=== PATIENT | female | born 1940 | race Caucasian/White ===

== ENCOUNTER → 2019-10-24 | Day surgery (SDC) | payer MEDICARE ==
[2019-10-22 12:20] LABS: BASOPHILS # (AUTO) 0.1 (0.0-0.1); BASOPHILS % 0.7 % (0.0-1.0); EOSINOPHILS % 0.5 % (0.0-6.0); HEMATOCRIT 43.5 % (34.2-44.1); LYMPHOCYTES # (AUTO) 2.2 (1.0-3.2); LYMPHOCYTES % 26.4 % (18.0-39.1); MEAN CORPUSCULAR HGB CONC 34.5 g/dL (31-35); MEAN CORPUSCULAR VOLUME 89.9 fL (81-99); MONOCYTES # (AUTO) 0.7 (0.2-0.8); NEUTROPHILS # (AUTO) 5.4 (2.1-6.9); NEUTROPHILS % 64.2 % (38.7-80.0); PLATELET COUNT 232 x10e3/uL (140-360); RED BLOOD COUNT 4.84 x10e6/uL (3.6-5.1); RED CELL DISTRIBUTION WIDTH 12.9 % (11.7-14.4)
--- NOTE | 2019-10-22 12:41 | Diagnostic Imaging Report ---
EXAM: CHEST 2 VIEWS DATE: 10/22/2019 11:40 AM INDICATION: Preoperative evaluation COMPARISON: None FINDINGS: Single lead left-sided pacing device identified in place. The trachea is midline. The lungs are symmetrically expanded without evidence for large focal consolidation, pneumothorax, or significant pleural effusion. The cardiomediastinal silhouette and pulmonary vasculature are within normal limits. Degenerative changes noted of the visualized spine. No acute osseous abnormality is identified. The surrounding soft tissues are unremarkable. IMPRESSION: No acute cardiopulmonary process identified. Signed by: Dr. Rubens Armando MD on 10/22/2019 12:38 PM
[~2019-10-24] MED LIST: AMLODIPINE BESYL5 MG PO; ARICEPT5 MG PO; ASPIR 8181 MG PO; CEFAZOLIN SOD 1 GM/NS 50ML 50 ML IV ONE; DEXAMETHASONE SOD PHOS INJ 4 MG/ML VIAL ONE; EYE LUBRICANT OPTH OINT 3.5GM TUBE OP ONE; FENTANYL CITRATE/PF 100MCG/2 ML INJ ONE; LEVOTHYROXINE50 MCG PO; LIDOCAINE 1% W/EPINEPHRINE 20 ML VIAL ONE; LIDOCAINE HCL 2% LOCAL INJ 5 ML SDV VIAL INJ ONE; METOPROLOL TART50 MG PO; MUPIROCIN 2% OINT 22 GM TUBE ONE; ONDANSETRON HCL INJ 2MG/ML 2ML 2 MG/ML VIAL ONE; POVIDONE IODINE 5% (OPTH) 30 ML BTL ONE; PROPOFOL IV EMULSION 10 MG/ML 20 ML VIAL ONE; QUETIAPINE FUMA25 MG PO; SEVOFLURANE INHAL SOLN 250 ML PEN BTL ONE; SIMVASTATIN20 MG PO
--- OUTSIDE RECORDS SUMMARY | 2019-10-24 05:43 | XMS REPORT ---
Author Author [facility] Organization [facility] Address Unknown Phone Unavailable Care Team Providers Care Weaving Machine Operator Name Role Phone DORA GASPAR Unavailable Unavailable Problems This patient has no known problems. Allergies, Adverse Reactions, Alerts This patient has no known allergies or adverse reactions. Medications This patient has no known medications. Results Test Description Test Time Test Comments Text Results Atomic Results Result Comments CHEST 2 VIEWS 2019-10-22 12:37:00 [place] [address] Patient Name: GINA CALDWELL MR #: [id number] : 1940 Age/Sex: 79/F Req #: [id number] Adm Physician: Ordered by: DORA GASPAR MD Report #: [id number] Location: OR Room/Bed: Procedure: [id number] DX/CHEST 2 VIEWS Exam Date: 10/22/19 Exam Time: 1140 REPORT STATUS: Signed EXAM: CHEST 2 VIEWS DATE: 10/22/2019 11:40 AM INDICATION: Preoperative evaluation COMPARISON: None FINDINGS: Single lead left-sided pacing device identified in place. The trachea is midline. The lungs are symmetrically expanded without evid ence for large focal consolidation, pneumothorax, or significant pleural effusion. The cardiomediastinal silhouette and pulmonary vasculature are within normal limits. Degenerative changes noted of the visualized spine. No acute osseous abnormality is identified. The surrounding soft tissues are unremarkable. IMPRESSION: No acute cardiopulmonary process identified. Signed by: Dr. Rubens Robledo MD on 10/22/2019 12:38 PM Dictated By: RUBENS ROBLEDO MD 1238 Transcribed By: SAMEER on 10/22/19 1238 COPY TO: DORA GASPAR MD
[2019-10-24 11:15] VITALS: BP 135/75
--- NOTE | 2019-10-24 12:45 | Operative Report ---
DATE OF PROCEDURE: 10/24/2019 SURGEON: Ritesh Brown MD PREOPERATIVE DIAGNOSIS: Malignant neoplasm, right cheek. POSTOPERATIVE DIAGNOSIS: Malignant neoplasm, right cheek, pending final pathology. PROCEDURES: 1. Excision of malignant neoplasm, right cheek, 3.5 cm diameter. 2. Pedicle flap closure, right cheek, 20 cm2. ANESTHESIA: General. HISTORY: The patient is an 79-year-old female, who has a large ulcerating lesion of the right cheek, which has been unattended to for several years. The proposed procedure is to excise the lesion in the OR and obtain frozen section diagnosis and control of the margins. Once the margins are clear, then definitive reconstruction will be performed. The risks, benefits, and alternatives of treatment were discussed with the patient and the , and they are prepared to undergo the procedure as outlined. PROCEDURE IN DETAIL: The patient was marked preoperatively in the holding area. She was brought to the operating theater and after the induction of adequate general anesthesia, she was prepped and draped in a supine position and a time-out was performed. The lesion measures approximately 2.3 to 2.4 cm in diameter the ulcerated area. In order to obtain free margins, a 1 cm margin was taken around the entire circumference of the lesion and this was then marked out. The incision was then made through the skin and subcutaneous tissue. Bleeding was controlled using the electrocautery. The lesion was incised full thickness through the subcutaneous tissues and then removed. It was then oriented and sent for frozen section control. 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 At this point, more tissue was taken on the superior edge of the wound approximately 2 to 3 mm in width. This area was then removed and sent to the pathology department as well. At this point, a pedicle of lobe flap closure was designed on the right cheek and the area was infiltrated with 1% Xylocaine with epinephrine. After waiting appropriate amount of time for maximum vasoconstrictive effect, the incision was made through the skin and subcutaneous tissues and the pedicle was noted to be approximately 3 cm wide by 3 cm long. The pedicle was then elevated in the deep subcutaneous plane and then the cheek was undermined, and the pedicle was then brought over to the primary defect. It was sutured in place using 5-0 nylon in an interrupted horizontal mattress fashion. The remaining defect was then undermined and closed and redundant skin edges were excised and remainder of the incision was then closed using 5-0 nylon in an interrupted horizontal mattress fashion as well. The entire flap measures approximately 5 x 3 cm for approximately 15 cm2 surface area. Bactroban ointment and Xeroform gauze were applied to the incisions. Sterile dressing was applied. The estimated blood loss for the procedure was approximately 10 to 20 mL. The patient tolerated the procedure well and was brought to recovery room in satisfactory condition and discharged with a postoperative instruction sheet as well as a followup appointment. MD NIKI Weber/JOHNIE /[id number]
== END | disposition home or self-care (01) ==
LOC: OR 05:35
PROVIDERS: ATTEND Plastic Surgery
DX: C44.319 Basal cell carcinoma of skin of other parts of face (principal); I10 Essential (primary) hypertension; E03.9 Hypothyroidism, unspecified; K21.9 Gastro-esophageal reflux disease without esophagitis; F03.90 Unspecified dementia, unspecified severity, without behavioral disturbance, psychotic disturbance, mood disturbance, and anxiety; F41.9 Anxiety disorder, unspecified; Z01.810 Encounter for preprocedural cardiovascular examination; Z01.812 Encounter for preprocedural laboratory examination; Z01.818 Encounter for other preprocedural examination; Z11.59 Encounter for screening for other viral diseases; Z79.82 Long term (current) use of aspirin; Z95.0 Presence of cardiac pacemaker
CPT/HCPCS: 14041; 36415; 71046; 85025; 87635; 88305; 88331; 88332; 93005; J0690; J1100; J2001; J2405; J2704; J3010

== ENCOUNTER 2019-11-07 11:56 | Emergency (ER) | payer MEDICARE, BC ==
[~2019-11-07] VITALS: Ht 165.1 cm; Wt 59.0 kg
[~2019-11-07 11:56] MED LIST changes: -CEFAZOLIN SOD 1 GM/NS 50ML 50 ML IV ONE; -DEXAMETHASONE SOD PHOS INJ 4 MG/ML VIAL ONE; -EYE LUBRICANT OPTH OINT 3.5GM TUBE OP ONE; -FENTANYL CITRATE/PF 100MCG/2 ML INJ ONE; -LIDOCAINE 1% W/EPINEPHRINE 20 ML VIAL ONE; -LIDOCAINE HCL 2% LOCAL INJ 5 ML SDV VIAL INJ ONE; -MUPIROCIN 2% OINT 22 GM TUBE ONE; -ONDANSETRON HCL INJ 2MG/ML 2ML 2 MG/ML VIAL ONE; -POVIDONE IODINE 5% (OPTH) 30 ML BTL ONE; -PROPOFOL IV EMULSION 10 MG/ML 20 ML VIAL ONE; -SEVOFLURANE INHAL SOLN 250 ML PEN BTL ONE
--- OUTSIDE RECORDS SUMMARY | 2019-11-07 12:00 | XMS REPORT | Summary of Care ---
Author Author [facility] Organization [facility] Address Unknown Phone Unavailable Encounter PARIS Chaney(PETRONA) [id number] Date(s): 05/11/16 - 05/11/16 [facility] [address] [place] [address]- Discharge Disposition: Home or Self Care Attending Physician: Justin Ann MD Referring Physician: Justin Ann MD Vital Signs Most recent to 1 2 oldest [Reference Range]: Height 178.37 cm (05/09/16 1:50 PM) Temperature Oral 97.3 DegF [96.4-99.1 DegF] (05/09/16 1:50 PM) Blood Pressure 162/71 mmHg 123/78 mmHg [90-140/60-90 mmHg] *HI* (05/09/16 1:50 PM) (05/11/16 12:05 PM) Respiratory Rate 18 BRMIN 16 BRMIN [14-20 BRMIN] (05/11/16 12:05 PM) (05/09/16 1:50 PM) Peripheral Pulse 48 bpm 55 bpm Rate [60-100 bpm] *LOW* *LOW* (05/11/16 12:05 PM) (05/09/16 1:50 PM) Weight 73.091 kg (05/09/16 1:50 PM) Body Mass Index 22.97 m2 (05/09/16 1:50 PM) Problem List Condition Effective Dates Status Health Status Informan t Pacemaker(Confirmed) Active GERD Active (gastroesophageal reflux disease)(Confirmed) Hyperlipidemia(Confi Active rmed) Hypertension(Confirm Active ed) Hypothyroidism(Confi Active rmed) Allergies, Adverse Reactions, Alerts Substance Reaction Severity Status codeine Active Dilantin Active Sumycin Active Medications aspirin 81 mg tablet, enteric coated 81 mg = 1 tab, PO, Daily, # 90 tab, 3 Refill(s) Start Date: 05/09/16 Status: Ordered levothyroxine 25 mcg (0.025 mg) oral tablet 25 microgram = 1 tab, PO, Daily, 0 Refill(s) Start Date: 05/09/16 Status: Ordered metoprolol tartrate 50 mg oral tablet 50 mg = 1 tab, PO, BID, 0 Refill(s) Start Date: 05/09/16 Status: Ordered pantoprazole 40 mg oral enteric coated tablet 40 mg = 1 tab, PO, Daily, 0 Refill(s) Start Date: 05/09/16 Status: Ordered pravastatin 40 mg oral tablet 40 mg = 1 tab, PO, Bedtime, 0 Refill(s) Start Date: 05/09/16 Status: Ordered Results ELECTROLYTES Most recent to 1 oldest [Reference Range]: Sodium Lvl [135-145 143 mEq/L mEq/L] (05/09/16 2:22 PM) Potassium Lvl 4.1 mEq/L [3.5-5.1 mEq/L] (05/09/16 2:22 PM) Chloride Lvl [95-109 106 mEq/L mEq/L] (05/09/16 2:22 PM) CO2 [24-32 mEq/L] 28 mEq/L (05/09/16 2:22 PM) AGAP [10.0-20.0 13.1 mEq/L mEq/L] (05/09/16 2:22 PM) CHEM PANEL Most recent to 1 oldest [Reference Range]: Creatinine Lvl 1.00 mg/dL [0.50-1.40 mg/dL] (05/09/16 2:22 PM) eGFR 54 mL/min/1.73m2 1 *NA* (05/09/16 2:22 PM) BUN [7-22 mg/dL] 18 mg/dL (05/09/16 2:22 PM) Glucose Lvl [70-99 76 mg/dL mg/dL] (05/09/16 2:22 PM) Calcium Lvl 8.9 mg/dL [8.5-10.5 mg/dL] (05/09/16 2:22 PM) 1Result Comment: The eGFR is calculated using the CKD-EPI formula. In most young, healthy individuals the eGFR will be >90 mL/min/1.73m2. The eGFR declines with age. An eGFR of 60-89 may be normal in some populations, particularly the elderly, for whom the CKD-EPI formula has not been extensively validated. Use of the eGFR is not recommended in the following populations: Individuals with unstable creatinine concentrations, including patients and those with serious co-morbid conditions. Patients with extremes in muscle mass or diet. The data above are obtained from the National Kidney Disease Education Program ( NKDEP) which additionally recommends that when the eGFR is used in patients with extremes of body mass index for purposes of drug dosing, the eGFR should be mul tiplied by the estimated BMI. HEMATOLOGY Most recent to 1 oldest [Reference Range]: WBC [3.7-10.4 K/CMM] 7.3 K/CMM (05/09/16 2:22 PM) RBC [4.20-5.40 4.71 M/CMM M/CMM] (05/09/16 2:22 PM) Hgb [12.0-16.0 g/dL] 14.3 g/dL (05/09/16 2:22 PM) Hct [36.0-48.0 %] 42.8 % (05/09/16 2:22 PM) MCV [80.0-98.0 fL] 90.7 fL (05/09/16 2:22 PM) MCH [27.0-31.0 pg] 30.2 pg (05/09/16 2:22 PM) MCHC [32.0-36.0 33.3 g/dL g/dL] (05/09/16 2:22 PM) RDW [11.5-14.5 %] 14.1 % (05/09/16 2:22 PM) Platelet [133-450 175 K/CMM K/CMM] (05/09/16 2:22 PM) MPV [7.4-10.4 fL] 10.6 fL *HI* (05/09/16:22 PM) Segs [45.0-75.0 %] 54.4 % (05/09/16 2:22 PM) Lymphocytes 35.3 % [20.0-40.0 %] (05/09/16 2:22 PM) Monocytes [2.0-12.0 8.4 % %] (05/09/16 2:22 PM) Eosinophils [0.0-4.0 0.9 % %] (05/09/16 2:22 PM) Basophils [0.0-1.0 1.0 % %] (05/09/16 2:22 PM) Segs-Bands # 4.0 K/CMM [1.5-8.1 K/CMM] (05/09/16 2:22 PM) Lymphocytes # 2.6 K/CMM [1.0-5.5 K/CMM] (05/09/16 2:22 PM) Monocytes # [0.0-0.8 0.6 K/CMM K/CMM] (05/09/16 2:22 PM) Eosinophils # 0.1 K/CMM [0.0-0.5 K/CMM] (05/09/16 2:22 PM) Basophils # [0.0-0.2 0.1 K/CMM K/CMM] (05/09/16 2:22 PM) PT [12.0-14.7 13.0 seconds seconds] (05/09/16 2:22 PM) INR [0.85-1.17] 0.96 (05/09/16 2:22 PM) PTT [22.9-35.8 32.4 seconds seconds] (05/09/16 2:22 PM) Immunizations Given and Recorded Vaccine Date Status Refusal Reason influenza virus vaccine, inactivated 08/26/08 G iven pneumococcal 23-valent vaccine 08/26/08 Given Procedures Procedure Date Related Diagnosis Body Site Cholecystectomy 2009 Ablation 2006 Appendectomy Hysterectomy Tonsillectomy Social History Social History Type Response Substance Abuse Use: None. Alcohol Current, Type Liquor. Freq uency: 1-2 times per month. Smoking Status Never smoker; Exposure to T obacco Smoke None; Cigarette Smoking Last 365 Days No; Reg Smoking Cessation Counseli ng No Assessment and Plan No data available for this section
--- OUTSIDE RECORDS SUMMARY | 2019-11-07 12:00 | XMS REPORT | CCD ---
Author Author [facility] Address Unknown Phone Unavailable Care Team Providers Care Biometric Screener Name Role Phone Juan Francisco Alicea RP Allergies, Adverse Reactions, Alerts Substance Reaction Status codeine Active Dilantin Active Sumycin Active Medications Medication Instructions Start Date End Date Status pneumococcal 0.5 ml, Route: IM, Drug Form: INJ, 08/26/200808/2008 Completed 23-valent vaccine ONCE, Start date: 08/26/08 9:00:00, Stop date: 08/26/08 9:00:00 influenza virus 0.5 ml, Route: IM, Drug Form: INJ, 08/26/2008 08/26/2008 Completed vaccine, inactivated ONCE, Start date: 08/26/08 9:00:00, Stop date: 08/26/08 9:00:00 Immunizations Vaccine Date Status influenza virus vaccine, inactivated 08/26/2008 [facility] (Verified) pneumococcal 23-valent vaccine 08/26/2008 Auth (V erified)
--- OUTSIDE RECORDS SUMMARY | 2019-11-07 12:00 | XMS REPORT ---
Author Author [facility] t Organization [facility] Address [address] [place] [address] Phone Unavailable Care Team Providers Care Regulatory Administrator Name Role Phone DORA GASPAR Attphys Unavailable MckinneyTramaine hernandez Joe Attphys Franchesca Andrea Attphys Justin Ann Attphys Matheus Mtz Attphys Problems This patient has no known problems. Allergies, Adverse Reactions, Alerts This patient has no known allergies or adverse reactions. Medications This patient has no known medications. Procedures This patient has no known procedures. Encounters Start Date/Time End Date/Time [facility] ID Source 2018-02-20 15:00:00 2018-03-21 23:59:00 Outpatient Joe Mckinney [id number] [facility] 2018-01-17 14:30:00 2018-02-15 23:59:00 Outpatient Joe Mckinney [id number] [facility] 2016-12-28 13:23:00 2016-12-28 23:59:00 Outpatient Franchesca Andrea [facility] [id number] [facility] 2016-05-11 11:01:00 2016-05-11 15:20:00 Outpatient Justin Chavez [facility] [id number] [facility] 2015-04-02 10:50:00 2015-04-02 23:59:00 Outpatient Amalia Mtz v [facility] [id number] [facility] Results Test Description Test Time Test Comments Results Result Comments Source CHEST 2 VIEWS 2019-10-22 12:37:00 [place] [address] Patient Name: GINA CALDWELL MR #: [id number] : 1940 Age/Sex: 79/F Req #: [id number] Adm Physician: Ordered by: DORA GASPAR MD Report #: [id number] Location: OR Room/Bed: Procedure: [id number] DX/CHEST 2 VIEWS Exam Date: 10/22/19 Exam [...] cardiopulmonary process identified. Signed by: Dr. Rubens Armando MD on 10/22/2019 12:38 PM Dictated By: RUBENS ARMANDO MD 1238 Transcribed By: SAMEER on 10/22/19 1238 COPY TO: DORA GASPAR MD
--- OUTSIDE RECORDS SUMMARY | 2019-11-07 12:00 | XMS REPORT | Summary of Care ---
Author Author [facility] Address Unknown Phone Unavailable Encounter HQ Shiv(FIN) [id number] Date(s): 02/20/18 - 03/21/18 [facility] Encounter Diagnosis Pain in left leg (Final) - 05/27/18 Pain in left hip (Final) - Weakness (Final) - Other abnormalities of gait and mobility (Final) - Discharge Disposition: Home or Self Care Attending Physician: Joe Mckinney MD Vital Signs No data available for this section Problem List Condition Effective Dates Status Health Status Informan t Pacemaker(Confirmed) Active GERD Active (gastroesophageal reflux disease)(Confirmed) Hyperlipidemia(Confi Active rmed) Hypertension(Confirm Active ed) Hypothyroidism(Confi Active rmed) Allergies, Adverse Reactions, Alerts Substance Reaction Severity Status codeine Active Sumycin Active Dilantin Active Medications No data available for this section Results No data available for this section Immunizations Given and Recorded Vaccine Date Status Refusal Reason influenza virus vaccine, inactivated 08/26/08 G iven pneumococcal 23-valent vaccine 08/26/08 Given Procedures Procedure Date Related Diagnosis Body Site Status Cholecystectomy 2009 Completed Ablation 2005 Completed Appendectomy Completed Hysterectomy Completed Tonsillectomy Completed Social History Social History Type Response Substance Abuse Use: None. Alcohol Current, Type Liquor. Freq uency: 1-2 times per month. Smoking Status Never smoker; Exposure to T obacco Smoke None; Cigarette Smoking Last 365 Days No; Reg Smoking Cessation Counseli ng No entered on: 05/09/16 Assessment and Plan No data available for this section
--- OUTSIDE RECORDS SUMMARY | 2019-11-07 12:00 | XMS REPORT | Summary of Care ---
Author Author [facility] Address Unknown Phone Unavailable Encounter HQ Shiv(FIN) [id number] Date(s): 01/17/18 - 02/15/18 [facility] Encounter Diagnosis Pain in left leg (Final) - 02/22/18 Pain in left hip (Final) - Weakness [...]
--- OUTSIDE RECORDS SUMMARY | 2019-11-07 12:00 | XMS REPORT | Summary of Care ---
Author Author [facility] Organization [facility] Address Unknown Phone Unavailable Encounter PARIS Chaney(FIN) [id number] Date(s): 12/28/16 - 12/28/16 [facility] [address] [place] [address]- Discharge Disposition: Home or Self Care Attending Physician: Franchesca Andrea MD Referring Physician: Franchesca Andrea MD Vital Signs No data available for this section Problem List Condition Effective Dates Status Health Status Informan t Pacemaker(Confirmed) Active GERD Active (gastroesophageal reflux disease)(Confirmed) Hyperlipidemia(Confi Active rmed) Hypertension(Confirm Active ed) Hypothyroidism(Confi Active rmed) Allergies, Adverse Reactions, Alerts Substance Reaction Severity Status codeine Active Dilantin Active Sumycin Active Medications No data available for this [...]
--- OUTSIDE RECORDS SUMMARY | 2019-11-07 12:00 | XMS REPORT | CCD ---
Author Author [facility] Address Unknown Phone Unavailable Care Team Providers Care Procedures Tech Name Role Phone Joe Mckinney RP Allergies, Adverse Reactions, Alerts Substance Reaction [...] Status influenza virus vaccine, inactivated 08/26/2008 [facility] (Verified) pneumococcal 23-valent vaccine 08/26/2008 Auth (V erified)
--- OUTSIDE RECORDS SUMMARY | 2019-11-07 12:00 | XMS REPORT | Summary of Care ---
Author Author [facility] Organization [facility] Address Unknown Phone Unavailable Encounter HQ Encntr_rosa maria(FIN) [id number] Date(s): 04/02/15 - 04/02/15 [facility] [address] [place] [address]- Discharge Disposition: Home Attending Physician: Matheus Mtz MD Vital Signs No data available for this section Problem List No data available for this section Allergies, Adverse Reactions, Alerts Substance Reaction Severity Status codeine Active Dilantin Active Sumycin Active Medications No data available for this section Results No data available for this section Immunizations Vaccine Date Refusal Reason influenza virus vaccine, inactivated 08/26/08 pneumococcal 23-valent vaccine 08/26/08 Procedures No data available for this section Social History No data available for this section Assessment and Plan No data available for this section
--- OUTSIDE RECORDS SUMMARY | 2019-11-07 12:00 | XMS REPORT | Continuity of Care Document ---
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 Active 12/22/2016 [facility] UNK Active 1 06/27/2015 [facility] GROIN PAIN Active 08/20/2012 [facility] VERTIGO Active 01/31/2012 [facility] Pain in left hip 10/08/2018 [facility] [place] Weakness 10/08/2018 Other abnormalities of gait and mobility 10/08/2018 [facility] Cardiac pacemaker in situ (finding) Active Problem [facility] [place] Gastroesophageal reflux disease (disorder) Active Problem 10/08/2018 [facility] Hyperlipidemia (disorder) Acti ve Problem [facility] Hypertensive disorder, systemic arterial (disorder) Active Problem 10/08/2018 [facility] Hypothyroidism (disorder) Acti ve Problem [facility] [place] 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 Active [facility] ALZHEIMER'S DISEASE WITH LATE ONSET Active [facility] Medications Medication Details Route Status Patient Instructions Ordering Provider Order Date Source pantoprazole 40 mg oral enteric coated tablet 40 mg = 1 tab, PO, Daily, 0 Refill(s) Active 05/09/2016 [facility] metoprolol tartrate 50 mg oral tablet 50 mg = 1 tab, PO, BID, 0 Refill(s) Active 05/09/2016 [facility] Aspirin 81 MG Enteric Coated Tablet 81 mg = 1 tab, PO, Daily, # 90 tab, 3 Refill(s) Active 05/09/2016 [facility] levothyroxine 25 mcg (0.025 mg) oral tablet 25 microgram = 1 tab, PO, Daily, 0 Refill(s) Active 05/09/2016 [facility] pravastatin 40 mg oral tablet 40 mg = 1 tab, PO, Bedtime, 0 Refill(s) Active 05/09/2016 [facility] pneumococcal 23-valent vaccine 0.5 ml, Route: IM, Drug Form: INJ, ONCE, Start date: 08/26/08 9:00:00, Stop date: 08/26/08 9:00:00 IM No Longer Active Nicholson 08/2008 [facility] influenza virus vaccine, inactivated 0.5 ml, Route: IM, Drug Form: INJ, ONCE, Start date: 08/26/08 9:00:00, Stop date: 08/26/08 9:00:00 IM No Longer Active Nicholson 08/2008 [facility] Allergies, Adverse Reactions, Alerts Substance Category Reaction Severity Reaction type Status Date Reported Comments Source codeine Assertion Drug allergy Active Dilantin Assertion Drug allergy Active Sumycin Assertion Drug allergy Active Immunizations Immunization Date Given Site Status Last Updated Comments Source influenza virus vaccine, inactivated 08/26/2008 completed [place] [facility] influenza virus vaccine, inactivated 08/26/2008 Right deltoid completed [place] [facility] pneumococcal 23-valent vaccine 08/26/2008 completed Jesús mckinney [facility] pneumococcal 23-valent vaccine 08/26/2008 Left deltoid completed [place] [facility] Results Order Name Results Value Reference Range Date Interpretation Comments Source ELECTROLYTES AGAP 13.1 10.0 - 20.0 05/09/2016 [facility] ELECTROLYTES eGFR 54 05/09/2016 Result Comment: The eGFR is calculated using the [...] from the National Kidney Disease Education Program (NKDEP) which additionally recommends that when the eGFR is used in patients with extremes of body mass index for purposes of drug dosing, the eGFR should be multiplied by the estimated BMI. [facility] ELECTROLYTES Chloride Lvl 106 95 - 109 05/09/2016 [facility] ELECTROLYTES Potassium Lvl 4.1 3.5 - 5.1 05/09/2016 [facility] ELECTROLYTES Calcium Lvl 8.9 8.5 - 10.5 05/09/2016 [facility] ELECTROLYTES CO2 28 24 - 32 05/09/2016 [facility] ELECTROLYTES Sodium Lvl 143 135 - 145 05/09/2016 [facility] ELECTROLYTES BUN 18 7 - 22 05/09/2016 [facility] ELECTROLYTES Creatinine Lvl 1.0 0 0.50 - 1.40 05/09/2016 [facility] ELECTROLYTES Glucose Lvl 76 70 - 99 05/09/2016 [facility] MPV 10.6 7.4 - 10.4 05/09/2016 [facility] RDW 14.1 11.5 - 14.5 05/09/2016 [facility] Platelet 175 133 - 450 05/09/2016 [facility] MCHC 33.3 32.0 - 36.0 05/09/2016 [facility] MCH 30.2 27.0 - 31.0 05/09/2016 [facility] MCV 90.7 80.0 - 98.0 05/09/2016 [facility] Hct 42.8 36.0 - 48.0 05/09/2016 [facility] RBC 4.71 4.20 - 5.40 05/09/2016 [facility] Hgb 14.3 12.0 - 16.0 05/09/2016 [facility] WBC 7.3 3.7 - 10.4 05/09/2016 [facility] HEMATOLOGY INR 0.96 0.85 - 1.17 05/09/2016 [facility] HEMATOLOGY PT 13.0 12.0 - 14.7 05/09/2016 [facility] PTT 32.4 22.9 - 35.8 05/09/2016 [facility] Basophils # 0.1 0.0 - 0.2 05/09/2016 [facility] Lymphocytes 35.3 20.0 - 40.0 05/09/2016 [facility] HEMATOLOGY Monocytes 8.4 2.0 - 12.0 05/09/2016 [facility] HEMATOLOGY Segs 54.4 45.0 - 75.0 05/09/2016 [facility] Monocytes # 0.6 0.0 - 0.8 05/09/2016 [facility] HEMATOLOGY Eosinophils # 0.1 0.0 - 0.5 05/09/2016 [facility] HEMATOLOGY Lymphocytes # 2.6 1.0 - 5.5 05/09/2016 [facility] Segs-Bands # 4.0 1.5 - 8.1 05/09/2016 [facility] HEMATOLOGY Basophils 1.0 0.0 - 1.0 05/09/2016 [facility] HEMATOLOGY Eosinophils 0.9 0.0 - 4.0 05/09/2016 [facility] Pathology Reports No Data Provided for This Section Diagnostic Reports Report Value Date Source Brain wo contrast CT Brain wo contrast CT CLINICAL HISTORY: PF - CT DLP - 649 mGycm - alzheimer's late onset; - denies pain or fall; COMPARISON: None TECHNIQUE: Contiguous transaxial images of the brain were performed without administration of IV contrast. Reformations were performed in sagittal and coronal projections. FINDINGS: BRAIN PARENCHYMA: There is no evidence for space-occupying lesions, mass effect or vasogenic edema. No evidence for parenchymal bleed, extra-axial collections or midline shift. Decreased attenuation in the periventricular white matter is likely related to chronic ischemic change from small vessel disease. No acute infarct is noted. Intracranial vascular calcifications are noted. VENTRICLES: There is dilation of ventricles and subarachnoid spaces but not out of proportion to the underlying cerebral atrophy. BRAINSTEM, SELLA AND ORBITS: No evidence for Chiari malformation. No space- occupying lesion is visualized in the sella. Visualized portion of the orbits are unremarkable. CALVARIUM AND SKULL BASE: No displaced bony fractures or other significant bony abnormality is visualized. MASTOIDS AND PARANASAL SINUSES: The visualized paranasal sinuses are clear. Mastoid air cells are clear bilaterally. IMPRESSION: No acute brain abnormality is noted. Further evaluation may be obtained with MRI of brain as clinically indicated. SL: [id number] 12/28/2016 [facility] Chest 2 views DX Chest 2 views : COMPARISON: 08/27/2010 FINDINGS: There is biapical pleural thickening. Oval calcified density at the right apex possibly reflects a calcified pleural plaque, unchanged in size and appearance from previous study. Lungs and pleural spaces are otherwise clear. The cardiomediastinal silhouette and the pulmonary vasculature are within normal limits. Stable position of left subclavian ICD. No significant bony abnormality is noted. IMPRESSION: No acute abnormality is noted in the chest SL:13 04/02/2015 [facility] Consultation Notes No Data Provided for This Section Discharge Summaries No Data Provided for This Section History and Physicals No Data Provided for This Section Vital Signs Vital Sign Value Date Comments Source Respitory Rate 18 05/11/2016 [facility] Systolic (mm Hg) 162 05/11/2016 [facility] Diastolic (mm Hg) 71 05/11/2016 [facility] Heart Rate 48 05/11/2016 [facility] Systolic (mm Hg) 123 05/09/2016 [facility] Diastolic (mm Hg) 78 05/09/2016 [facility] Heart Rate 55 05/09/2016 [facility] Respitory Rate 16 05/09/2016 [facility] Temperature Oral (F) 97.3 F 05/09/2016 [facility] Weight 73.091 05/09/2016 [facility] BMI Calculated 22.97 05/09/2016 [facility] Height 178.37 cm 05/09/2016 [facility] Encounters Location Location Details Encounter Type Encounter Number Reason For Visit Attending Provider ADM Date DC Date Status Source [facility] Outpatient [id number] VERTIGO JOE NICHOLSON 02/02/2012 Active [facility] Outpatient [id number] GROIN PAIN NADIM ROSCCA 08/22/2012 Active [facility] Outpatient [id number] Matheus Mtz 04/02/2015 04/03/2015 [facility] Outpatient [id number] Justin Shelby 05/11/2016 05/11/2016 [facility] Outpatient [id number] Franchesca Andrea 12/28/2016 12/29/2016 [facility] Therapy Patients [id number] Joe Nicholson 01/17/2018 02/16/2018 [facility] OP Therapy Patients [id number] Joe Nicholson 02/20/2018 03/22/2018 Procedures Procedure Code Date Perfomer Comments Source Cholecystectomy [id number] 06/26/2009 [facility] Ablation [id number] 06/26/2005 [facility] Appendectomy [id number] [facility] Hysterectomy [id number] [facility] Tonsillectomy [id number] [facility] Assessment and Plan No Data Provided for This Section Plan of Care No Data Provided for This Section Social History Social History Date Source Social History TypeResponse Substance Abuse Use: None. Alcohol Current, Type Liquor. Frequency: 1-2 times per month. Smoking Status Never smoker; Exposure to Tobacco Smoke None; Cigarette Smoking Last 365 Days No; Reg Smoking Cessation Counseling No 05/09/2016 [facility] Social History TypeResponse Substance Abuse Use: None. Alcohol Current, Type Liquor. Frequency: 1-2 times per month. Smoking Status Never smoker; Exposure to Tobacco Smoke None; Cigarette Smoking Last 365 Days No; Reg Smoking Cessation Counseling No entered on: 05/09/16 05/09/2016 Family History No Data Provided for This Section Advance Directives No Data Provided for This Section Functional Status No Data Provided for This Section
[2019-11-07] MEDS ORDERED: CITRATE OF MAGNESIA 300ML BOTTLE PO ONE (13:30)
[2019-11-07] MEDS ORDERED: LACTULOSE SYRUP 20 GM/30 ML UDC PO ONE (13:30)
[2019-11-07] MEDS ORDERED: DIATRIZOATE MEGL/DIATRIZOA SOD 30 ML BTL PO ONE (13:54)
[2019-11-07 14:08] LABS: BASOPHILS # (AUTO) 0.1 (0.0-0.1); BASOPHILS % 0.6 % (0.0-1.0); EOSINOPHILS % 0.4 % (0.0-6.0); HEMATOCRIT 43.8 % (34.2-44.1); HEMOGLOBIN 14.3 g/dL (12.0-16.0); LYMPHOCYTES # (AUTO) 2.5 (1.0-3.2); LYMPHOCYTES % 22.6 % (18.0-39.1); MEAN CORPUSCULAR HEMOGLOBIN 29.5 pg (28-32); MEAN CORPUSCULAR HGB CONC 32.6 g/dL (31-35); MEAN CORPUSCULAR VOLUME 90.3 fL (81-99); MONOCYTES # (AUTO) 0.7 (0.2-0.8); MONOCYTES % 6.6 % (4.4-11.3); NEUTROPHILS # (AUTO) 7.6 (2.1-6.9); NEUTROPHILS % 69.5 % (38.7-80.0); PLATELET COUNT 279 x10e3/uL (140-360); RED BLOOD COUNT 4.85 x10e6/uL (3.6-5.1); RED CELL DISTRIBUTION WIDTH 12.8 % (11.7-14.4)
[2019-11-07 14:22] LABS: ALBUMIN 4.1 g/dL (3.5-5.0); ALBUMIN/GLOBULIN RATIO 1.3 (0.8-2.0); ANION GAP 15.9 mmol/L (8-16); CALCIUM 9.5 mg/dL (8.4-10.2); CREATININE, SERUM 1.13 mg/dL (0.57-1.11); POTASSIUM 3.9 mmol/L (3.5-5.1)
[2019-11-07 14:28] LABS: CREATINE KINASE MB 1.6 ng/mL (0-5.0)
[2019-11-07] MEDS ORDERED: SODIUM CHLORIDE 0.9% 1000ML 1,000 ML IV STA (15:06)
--- NOTE | 2019-11-07 15:23 | Emergency Department Note ---
History of Present Illnes History of Present Illness Chief Complaint: Abdominal Complaints History of Present Illness This is a 79 year old female with complaints of constipation- at bedside states he is usually able to assist with bowel movements but it hasn't been working. Chief Complaint Comment PER SPOUSE, PATIENT IN WITH ABDOMINAL PAIN AND CONSTIPATION; STATES LAST BM 8 DAYS AGO. STATES HE HAS TRIED MULTIPLE MEDICATIONS WITH NO RESULTS. PATIENT APPEARS IN NO DISTRESS, RESP EVEN AND NONLABORED, AMBULATORY WITHOUT ASSISTANCE Historian: Patient, Family Member Arrival Mode: Car History limited by: condition of the patient (advanced dementia) Severity: mild Timing of current episode: intermittent Progression: worsening Relieving factors: none Exacerbating factors: none Associated symptoms: other (abdominal pain) Past Medical/Family History Physician Review I have reviewed the patient's past medical and family history. Any updates have been documented here. Past Medical History Unable to obtain PMH: other (advanced dementia ) Recent Fever: No Clinical Suspicion of Infectio: No New/Unexplained Change in Ment: No Past Medical History: Hypertension, Cancer, Other Mental Illness, Hyperlipedemia Other Medical History: DEMENTIA SKIN CANCER - REMOVED Past Surgical History: Cholecysctectomy, Pacer/AICD Other Surgery: CARDIAC ABLATION Social History Smoking Cessation: Never Smoker Counseling Performed: No Alcohol Use: None Any Illegal Drug Use: No TB Exposure/Symptoms: No Physically hurt or threatened: No Family History Family history of heart diseas: No Other Last Tetanus: UTD Any Pre-Existing Lines (PICC,: No Is patient up to date on immun: Yes Last Flu: UTD Last Pneumovax: UTD Review of Systems ROS Narrative Unable to obtain ROS: other limited 2/2 advanced dementia Review of Systems Constitutional: no symptoms EENTM: no symptoms Cardiovascular: no symptoms; chest pain Respiratory: no symptoms Gastrointestinal: no symptoms, abdominal pain, constipation Genitourinary: no symptoms Musculoskeletal: no symptoms Integumentary: no symptoms Neurological: no symptoms Psychological: no symptoms Endocrine: no symptoms Hematological/Lymphatic: no symptoms Review of other systems All other systems reviewed and negative. Physical Exam Related Data Allergies: Coded Allergies: No Known Allergies (Unverified , 10/21/19) Triage Vital Signs Vital Signs Date Time Temp Pulse Resp B/P (MAP) Pulse Ox O2 Delivery O2 Flow Rate FiO2 11/07/19 12:18 97.3 72 16 120/96 98 Vital signs reviewed: Yes Physical Exam CONSTITUTIONAL Constitutional: well-developed, well-nourished HENT HENT: normocephalic, atraumatic, oropharynx clear/moist, nose normal HENT - Ear: left ext ear normal, right ext ear normal EYES Eyes: PERRL, conjunctivae normal NECK Neck: ROM normal PULMONARY Pulmonary: effort normal, breath sounds normal CARDIOVASCULAR Cardiovascular: regular rhythm, heart sounds normal, capillary refill normal, normal rate GASTROINTESTINAL Abdominal: soft, bowel sounds normal, tender GENITOURINARY Genitourinary: exam deferred SKIN Skin: warm, dry MUSCULOSKELETAL Musculoskeletal: ROM normal NEUROLOGICAL Neurological: alert, no gross motor or sensory deficits PSYCHOLOGICAL Psychiatric/behavioral: mood/affect normal, judgement normal Results Laboratory Result Diagram: 11/07/19 1347 11/07/19 1347 Laboratory Laboratory Tests Test 11/07/19 13:47 White Blood Count 10.99 x10e3/uL (4.8-10.8) Red Blood Count 4.85 x10e6/uL (3.6-5.1) Hemoglobin 14.3 g/dL (12.0-16.0) Hematocrit 43.8 % (34.2-44.1) Mean Corpuscular Volume 90.3 fL (81-99) Mean Corpuscular Hemoglobin 29.5 pg (28-32) Mean Corpuscular Hemoglobin Concent 32.6 g/dL (31-35) Red Cell Distribution Width 12.8 % (11.7-14.4) Platelet Count 279 x10e3/uL (140-360) Neutrophils (%) (Auto) 69.5 % (38.7-80.0) Lymphocytes (%) (Auto) 22.6 % (18.0-39.1) Monocytes (%) (Auto) 6.6 % (4.4-11.3) Eosinophils (%) (Auto) 0.4 % (0.0-6.0) Basophils (%) (Auto) 0.6 % (0.0-1.0) Neutrophils # (Auto) 7.6 (2.1-6.9) Lymphocytes # (Auto) 2.5 (1.0-3.2) Monocytes # (Auto) 0.7 (0.2-0.8) Eosinophils # (Auto) 0.0 (0.0-0.4) Basophils # (Auto) 0.1 (0.0-0.1) Absolute Immature Granulocyte (auto 0.03 x10e3/uL (0-0.1) Sodium Level 142 mmol/L (136-145) Potassium Level 3.9 mmol/L (3.5-5.1) Chloride Level 105 mmol/L (98-107) Carbon Dioxide Level 25 mmol/L (22-29) Anion Gap 15.9 mmol/L (8-16) Blood Urea Nitrogen 11 mg/dL (7-26) Creatinine 1.13 mg/dL (0.57-1.11) Estimat Glomerular Filtration Rate 46 ML/MIN (60-) BUN/Creatinine Ratio 10 (6-25) Glucose Level 94 mg/dL (74-118) Calcium Level 9.5 mg/dL (8.4-10.2) Total Bilirubin 0.5 mg/dL (0.2-1.2) Aspartate Amino Transf (AST/SGOT) 17 IU/L (5-34) Alanine Aminotransferase (ALT/SGPT) 18 IU/L (0-55) Alkaline Phosphatase 108 IU/L (40-150) Creatine Kinase 33 IU/L (29-168) Creatine Kinase MB 1.60 ng/mL (0-5.0) Troponin I 0.013 ng/mL (0-0.300) Total Protein 7.2 g/dL (6.5-8.1) Albumin 4.1 g/dL (3.5-5.0) Globulin 3.1 g/dL (2.3-3.5) Albumin/Globulin Ratio 1.3 (0.8-2.0) Lab results reviewed: Yes Imaging Imaging results reviewed: Yes Imaging Comments IMPRESSION: Severe diverticulosis without CT evidence of diverticulitis. Normal stool burden in the colon. Small ventral incisional hernia containing a loop of nondilated small bowel Critical Care Time Subsequent provider I assumed direction of critical care for this patient from another provider of my specialty. Assessment & Plan Assessment & Plan Problems: (1) Abdominal pain Last Vital Signs Date Time Temp Pulse Resp B/P (MAP) Pulse Ox O2 Delivery O2 Flow Rate FiO2 11/07/19 12:18 97.3 72 16 120/96 98 Home Meds Reported Medications Quetiapine Fumarate (QUETIAPINE FUMARATE) 25 Mg Tablet, 50 MG PO DAILY 10/21/19 Donepezil Hcl (ARICEPT) 5 Mg Tablet, 10 MG PO DAILY, #60 TAB 10/21/19 Aspirin (ASPIR 81) 81 Mg Tablet.dr, 81 MG PO DAILY 10/21/19 Simvastatin (SIMVASTATIN) 20 Mg Tablet, 20 MG PO DAILY, EA 10/21/19 Levothyroxine Sodium (LEVOTHYROXINE SODIUM) 50 Mcg Tablet, 25 MCG PO DAILY, #30 TAB 10/21/19 Metoprolol Tartrate (METOPROLOL TARTRATE) 50 Mg Tablet, 25 MG PO DAILY, TAB 10/21/19 Amlodipine Besylate (AMLODIPINE BESYLATE) 5 Mg Tablet, 5 MG PO DAILY, #30 TAB 10/21/19 Medications in the ED Lactulose 20 gm ONCE ONCE PO ; Start 11/07/19 at 13:30; Stop 11/07/19 at 13:31; Status DC Magnesium Citrate 300 ml ONCE ONCE PO ; Start 11/07/19 at 13:30; Stop 11/07/19 at 13:31; Status DC Diatrizoate Meglum/ Diatrizoate Sod 30 ml STK-MED ONCE PO ; Start 11/07/19 at 13:54; Stop 11/07/19 at 13:49; Status DC JULIA JUAREZ DO November 07, 2019 15:22
--- NOTE | 2019-11-07 16:11 | Diagnostic Imaging Report ---
EXAM: CT Abdomen and Pelvis WITH intravenous contrast INDICATION: Abdominal pain, constipation COMPARISON: None. TECHNIQUE: Abdomen and pelvis were scanned utilizing a multidetector helical scanner from the lung base to the pubic symphysis after administration of IV contrast. Coronal and sagittal reformations were obtained. Routine protocol was performed. Scan was performed during portal venous phase. IV CONTRAST: 100mL of Isovue 370 ORAL CONTRAST: Gastrografin RADIATION DOSE: Total DLP: 242 mGy*cm Dose modulation, iterative reconstruction, and/or weight based adjustment of the mA/kV was utilized to reduce the radiation dose to as low as reasonably achievable. FINDINGS: LOWER THORAX: Unremarkable HEPATOBILIARY: Diffuse hepatic steatosis. No focal liver lesion. Status post cholecystectomy. SPLEEN: No splenomegaly. PANCREAS: No focal masses or ductal dilatation. ADRENALS: No adrenal nodules. KIDNEYS/URETERS: No hydronephrosis or renal calculi. Subcentimeter left renal cysts. PELVIC ORGANS/BLADDER: Hysterectomy. PERITONEUM / RETROPERITONEUM: No free air or fluid. LYMPH NODES: No lymphadenopathy. VESSELS: Scattered atherosclerotic calcifications of the nonaneurysmal abdominal aorta and major branches.. GI TRACT: Severe sigmoid diverticulosis. No CT evidence of diverticulitis. No abnormal bowel thickening. No bowel obstruction. Normal stool burden in the colon. BONES AND SOFT TISSUES: No acute osseous injury. No suspicious lytic or blastic lesions. Ventral incisional hernia containing a loop of nondilated small bowel. IMPRESSION: Severe diverticulosis without CT evidence of diverticulitis. Normal stool burden in the colon. Small ventral incisional hernia containing a loop of nondilated small bowel. Signed by: Ruby Ochoa MD on 11/07/2019 4:07 PM
--- NOTE | 2019-11-07 16:37 | NUR ---
Pt ambulated to RR with spouse.
--- NOTE | 2019-11-07 17:39 | NUR ---
Pt had large BM, at bedside assisting patient to change clothes.
[2019-11-07 18:48] LABS: CLARITY,URINE MUCOUS (CLEAR); COLOR,URINE STRAW (YELLOW); LEUKOCYTE ESTERASE ,URINE MODERATE (NEGATIVE); NITRITE,URINE POSITIVE (NEGATIVE); PROTEIN,URINE DIPSTICK TRACE (NEGATIVE)
[2019-11-07 18:49] LABS: BILIRUBIN,URINE NEGATIVE (NEGATIVE); KETONES,URINE NEGATIVE (NEGATIVE); URINE UROBILINOGEN 0.2 mg/dL (0.2 - 1)
[2019-11-07 19:02] LABS: BACTERIA,URINE MODERATE /HPF; EPITHELIAL CELLS,URINE RARE /LPF; RBC,URINE 0-5 /HPF (0-5); WBC,URINE (MAN) 21-50 /HPF (0-5)
[2019-11-07] MEDS ORDERED: CEFTRIAXONE SOD 1 GM/NS 50 ML 50 ML IV ONE (19:15)
[2019-11-07] MEDS ORDERED: SODIUM CHLORIDE 0.9% 50ML 50 ML ONE (22:26)
[2019-11-07] MEDS ORDERED: IOPAMIDOL 370 MG/ML 200 ML INFUS..BTL INJ ONE (22:26)
== END 2019-11-07 19:45 | disposition home or self-care (01) ==
LOC: ER 11:56
DX: R10.9 Unspecified abdominal pain (principal); F03.90 Unspecified dementia, unspecified severity, without behavioral disturbance, psychotic disturbance, mood disturbance, and anxiety; I10 Essential (primary) hypertension; E78.5 Hyperlipidemia, unspecified; Z85.828 Personal history of other malignant neoplasm of skin; Z95.810 Presence of automatic (implantable) cardiac defibrillator
CPT/HCPCS: 36415; 74177; 80053; 81001; 82550; 82553; 84484; 85025; 99284; J0696; J7030; Q9967